=== PATIENT | male | born 1985 | race Two or more races ===

== ENCOUNTER 2023-03-13 20:43 | Emergency (ER) | payer SELFPAY ==
[~2023-03-13] VITALS: Ht 182.9 cm; Wt 109.0 kg
[2023-03-13 21:58] VITALS: BP 131/92; PULSE 104; RESP 20; O2SAT 95
[2023-03-13] MEDS ORDERED: HYDROcodone-ACET 10/325MG TAB PO ONE (22:00)
[2023-03-13] MEDS ORDERED: IBUPROFEN 800 MG TAB PO ONE (22:00)
[2023-03-13] MEDS ORDERED: IBUP-1456 PO (22:02)
[2023-03-13] MEDS ORDERED: IBUP-1455 PO (23:09)
[2023-03-13] MEDS ORDERED: HYDR-4798 PO ×2 (23:21→23:22)
== END 2023-03-13 23:40 | disposition home or self-care (01) ==
LOC: ER 20:43
DX: S82.391A Other fracture of lower end of right tibia, initial encounter for closed fracture (principal); W17.89XA Other fall from one level to another, initial encounter; Y93.89 Activity, other specified; Y92.89 Other specified places as the place of occurrence of the external cause; Y99.8 Other external cause status
CPT/HCPCS: 73590

== ENCOUNTER 2023-03-15 08:34 | Emergency (ER) | payer SELFPAY ==
[~2023-03-15] VITALS: Ht 182.9 cm; Wt 107.0 kg
[~2023-03-15 08:34] MED LIST: HYDR-4798 PO; IBUP-1455 PO
[2023-03-15 10:21] VITALS: BP 129/95; PULSE 122; RESP 20; TEMP 97.9; O2SAT 96
[2023-03-15] MEDS ORDERED: HYDROcodone-ACET 10/325MG TAB PO ONE (11:15)
[2023-03-15] MEDS ORDERED: HYDR1TAB97 PO (11:23)
[2023-03-15] MEDS ORDERED: HYDR-4902 PO (12:25)
== END 2023-03-15 12:26 | disposition home or self-care (01) ==
LOC: ER 08:34
DX: S82.25 Comminuted fracture of shaft of tibia (principal); Z76.0 Encounter for issue of repeat prescription; X58.XXXD Exposure to other specified factors, subsequent encounter